=== PATIENT | male | born 1965 | race Caucasian/White ===

== ENCOUNTER 2017-12-04 07:43 | Emergency (ER) | payer BC ==
[~2017-12-04] VITALS: Ht 182.9 cm; Wt 125.6 kg
[2017-12-04 07:52] VITALS: Ht 182.9 cm; Wt 125.6 kg
[2017-12-04 10:34] VITALS: BP 136/93
== END 2017-12-04 10:34 | disposition home or self-care (01) ==
LOC: ED 07:43
DX: S39.012A Strain of muscle, fascia and tendon of lower back, initial encounter (principal); X58.XXXA Exposure to other specified factors, initial encounter; Y93.89 Activity, other specified; Y92.89 Other specified places as the place of occurrence of the external cause; Y99.8 Other external cause status
CPT/HCPCS: 72072; J1170; J1885; Q0162